=== PATIENT | male | born 1980 | race Caucasian/White ===

== ENCOUNTER 2016-10-29 21:02 | Emergency (ER) | payer OTHER ==
--- NOTE | 2016-10-29 21:22 | UC ---
Ear Complaint HPI - HPI Summary HPI Summary: 36 YEAR OLD MALE PRESENTS WITH COMPLAINS RIGHT EAR PAIN. - History of Current Complaint Stated Complaint: EAR PAIN Time Seen by Provider: 10/29/16 21:16 - Allergies/Home Medications Allergies/Adverse Reactions: Allergies Allergy/AdvReac Type Severity Reaction Status Date / Time seasonal Allergy Congestion Uncoded 10/29/16 21:28 PMH/Surg Hx/FS Hx/Imm Hx Previously Healthy: Yes - Surgical History Surgical History: Yes Surgery Procedure, Year, and Place: 2010 umbilical hernia - Social History Alcohol Use: None Substance Use Type: None Smoking Status (MU): Former Smoker - Immunization History Most Recent Tetanus Shot: greater than 5 yrs ago Review of Systems Constitutional: Negative Skin: Negative Eyes: Negative ENT: Ear Ache Respiratory: Negative Cardiovascular: Negative Gastrointestinal: Negative Genitourinary: Negative Motor: Negative Neurovascular: Negative Musculoskeletal: Negative Neurological: Negative Psychological: Negative All Other Systems Reviewed And Are Negative: Yes Physical Exam Triage Information Reviewed: Yes Eye Exam: Normal ENT: Positive: Other: - RIGHT EXTERNAL EAR ERYTHEMA Dental Exam: Normal Neck exam: Normal Neck: Positive: 1 Respiratory Exam: Normal Cardiovascular Exam: Normal Abdominal Exam: Normal Musculoskeletal Exam: Normal Neurological Exam: Normal Psychological Exam: Normal Skin Exam: Normal Ear Complaint Course/Dx - Differential Dx/Diagnosis Provider Diagnoses: RIGHT OTITS EXTERNA Discharge - Discharge Plan Condition: Stable Disposition: HOME Prescriptions: Amoxicillin PO (*) [Amoxicillin 500 MG CAP*] 500 mg PO TID #30 cap Neomyc/Polym/HC 1% OTIC SUSP* [Cortisporin Otic Susp 1%*] 4 drop RIGHT EAR QID # 1 btl Patient Education Materials: Earache (ED) Referrals: Opal Mcgregor MD [Primary Care Provider] - If Needed
[2016-10-29 21:29] VITALS: BP 125/82
== END 2016-10-29 21:32 | disposition home or self-care (01) ==
LOC: UCCORT 21:02
DX: H60.91 Unspecified otitis externa, right ear (principal); Z87.891 Personal history of nicotine dependence
CPT/HCPCS: 99212; G0463

== ENCOUNTER 2018-11-22 13:48 | Emergency (ER) | payer BC, OTHER ==
[2018-11-22 14:25] VITALS: BP 139/90
--- NOTE | 2018-11-22 14:47 | UC ---
Shoulder Pain HPI - HPI Summary HPI Summary: c/o L shoulder pain x3-4 weeks. States has had pain before do to repeatative motion. Now interfering with ADL.States burning sensation in shoulder area, with cold sensation that will radiate to hand. - History of Current Complaint Chief Complaint: UCUpperExtremity Stated Complaint: LEFT ARM/SHOULDER PAIN Time Seen by Provider: 11/22/18 14:21 Hx Obtained From: Patient Onset/Duration: Sudden Onset, Lasting Weeks Timing: Constant Severity Initially: Moderate Severity Currently: Moderate Pain Intensity: 7 Character: Aching, Throbbing, Stiffness, Burning Aggravating Factor(s): Movement, Lifting, Flexion, Extension, Internal Rotation , External Rotation Alleviating Factor(s): Rest, Ice Associated Signs And Symptoms: Positive: Weakness, Numbness/Tingling - Allergies/Home Medications Allergies/Adverse Reactions: Allergies Allergy/AdvReac Type Severity Reaction Status Date / Time seasonal Allergy Congestion Uncoded 11/22/18 14:19 PMH/Surg Hx/FS Hx/Imm Hx Previously Healthy: Yes - Surgical History Surgical History: Yes Surgery Procedure, Year, and Place: 2010 umbilical hernia - Family History Known Family History: Positive: Hypertension - Social History Alcohol Use: None Substance Use Type: None Smoking Status (MU): Former Smoker - Immunization History Most Recent Tetanus Shot: greater than 5 yrs ago Review of Systems All Other Systems Reviewed And Are Negative: Yes Musculoskeletal: Positive: Arthralgia, Decreased ROM, Myalgia Neurological: Positive: Numbness Is Patient Immunocompromised?: No Physical Exam Triage Information Reviewed: Yes Appearance: Well-Appearing, Well-Nourished, Pain Distress Vital Signs: Initial Vital Signs Temp 98.6 F 11/22/18 14:21 Pulse 68 11/22/18 14:21 Resp 15 11/22/18 14:21 BP 139/90 11/22/18 14:21 Pulse Ox 100 11/22/18 14:21 Vital Signs Reviewed: Yes Eye Exam: Normal ENT Exam: Normal Dental Exam: Normal Neck exam: Normal Respiratory Exam: Normal Respiratory: Positive: Chest non-tender, Lungs clear, Normal breath sounds Cardiovascular Exam: Normal Cardiovascular: Positive: RRR, No Murmur, Pulses Normal Bowel Sounds: Positive: Present Musculoskeletal: Positive: Strength Intact, ROM Intact - but painful and casues numbness in external rotation, No Edema Neurological Exam: Normal Psychological Exam: Normal Skin Exam: Normal Shoulder Course/Dx - Course Course Of Treatment: hx obtained, exam performed ,meds reviewed, xray obtained, sling provided - Differential Dx/Diagnosis Differential Diagnosis/HQI/PQRI: Bursitis, Dislocation, Sprain, Strain, Tendonitis, Thoracic Outlet Syndrome Provider Diagnosis: Thoracic outlet syndrome of left thoracic outlet Discharge ED - Sign-Out/Discharge Documenting (check all that apply): Patient Departure All imaging exams completed and their final reports reviewed: No Studies - Discharge Plan Condition: Stable Disposition: HOME Patient Education Materials: Thoracic Outlet Syndrome (ED) [facility] - Jayme Butt MD [Medical Doctor] - Additional Instructions: 1. use the sling and ibuprofen for pain and rest 2. Follow up with orthopedics - Billing Disposition and Condition Condition: STABLE Disposition: Home
== END 2018-11-22 15:08 | disposition home or self-care (01) ==
LOC: UCCORT 13:48
DX: G54.0 Brachial plexus disorders (principal); Z87.891 Personal history of nicotine dependence
CPT/HCPCS: 99212; G0463